=== PATIENT | female | born 1940 | race Caucasian/White ===

== ENCOUNTER 2017-04-02 07:47 | Outpatient (RCR) | payer OTHER ==
[~2017-04-02] VITALS: Ht 157.5 cm; Wt 49.9 kg
[~2017-04-02 07:47] MED LIST: AVAPRO150 MG PO; BUSPAR10 MG ORAL; BUSPIRONE HCL10 M1 PO; CLOZAPINE100 MG PO; CLOZARIL100 MG ORAL; FANAPT2 MG ORAL; GABAPENTIN100 MG PO; IRBESARTAN150 MG PO; LEVOTHYROXINE50 MCG PO; LITHIUM CARBON150 MG ORAL; QUETIAPINE FUMA50 MG PO; RISPERIDONE2 MG PO; SYNTHROID75 MCG ORAL; VITAMIN D-32000 UNI1 ORAL
[2017-04-02] MEDS ORDERED: Succinylcholine 20mg/ml 10ml vial ONE (07:48)
[2017-04-02] MEDS ORDERED: Methohexital Sodium Syr 100mg/10ml IVP ONE (07:48)
[2017-04-02] MEDS ORDERED: Glycopyrrolate 0.2mg/ml 1ml Vial ONE (07:48)
[2017-04-02] MEDS ORDERED: NS 500ML IV ONE (07:48)
[2017-04-02] MEDS ORDERED: Sodium Chloride 500ML 500 ML IV ONE (16:45)
== END 2017-04-26 | disposition home or self-care (01) ==
LOC: MERGE 07:47 → ECT 07:47
DX: F31.64 Bipolar disorder, current episode mixed, severe, with psychotic features (principal)
CPT/HCPCS: 90870; J0330; J7040

== ENCOUNTER 2017-04-28 10:08 | Outpatient (RCR) | payer OTHER ==
[~2017-04-28] VITALS: Ht 157.5 cm; Wt 49.9 kg
[2017-04-28] MEDS ORDERED: Glycopyrrolate 0.2mg/ml 1ml Vial ONE (10:09)
[2017-04-28] MEDS ORDERED: Methohexital Sodium Syr 100mg/10ml IVP ONE (10:09)
[2017-04-28] MEDS ORDERED: Succinylcholine 20mg/ml 10ml vial ONE (10:09)
[2017-04-28] MEDS ORDERED: NS 500ML IV ONE (10:09)
[2017-04-28] MEDS ORDERED: Sodium Chloride 500ML 500 ML IV ONE (10:41)
[2017-05-26] MEDS ORDERED: NS 500ML IV ONE (07:00)
[2017-05-26] MEDS ORDERED: Glycopyrrolate 0.2mg/ml 1ml Vial ONE (07:00)
[2017-05-26] MEDS ORDERED: Methohexital Sodium Syr 100mg/10ml IVP ONE (07:00)
[2017-05-26] MEDS ORDERED: Succinylcholine 20mg/ml 10ml vial ONE (07:00)
[2017-05-26] MEDS ORDERED: Sodium Chloride 500ML 500 ML IV ONE (10:32)
[2017-05-26 10:35] VITALS: BP 159/50
[2017-05-26 10:40] VITALS: BP 170/45
[2017-05-26 10:45] VITALS: BP 154/49
[2017-05-26 10:50] VITALS: BP 130/52
[2017-05-26 11:35] VITALS: BP 123/74
== END 2017-05-27 | disposition home or self-care (01) ==
LOC: MERGE 10:08 → ECT 10:08
DX: F31.64 Bipolar disorder, current episode mixed, severe, with psychotic features (principal)
CPT/HCPCS: 90870; J0330; J7040

== ENCOUNTER 2017-06-25 08:38 | Outpatient (RCR) | payer OTHER ==
[~2017-06-25] VITALS: Ht 157.5 cm; Wt 45.4 kg
[2017-06-25] MEDS ORDERED: Succinylcholine 20mg/ml 10ml vial ONE (08:39)
[2017-06-25] MEDS ORDERED: Glycopyrrolate 0.2mg/ml 1ml Vial ONE (08:39)
[2017-06-25] MEDS ORDERED: NS 500ML ONE (08:39)
[2017-06-25] MEDS ORDERED: Methohexital Sodium Syr 100mg/10ml IVP ONE (08:39)
[2017-06-25 10:17] VITALS: BP 162/75
[2017-06-25] MEDS ORDERED: Sodium Chloride 500ML 500 ML IV ONE (10:36)
[2017-06-25 10:40] VITALS: BP 154/42
[2017-06-25 10:45] VITALS: BP 150/40
[2017-06-25 10:50] VITALS: BP 148/48
[2017-06-25 10:55] VITALS: BP 128/58
== END 2017-06-26 | disposition home or self-care (01) ==
LOC: MERGE 08:38 → ECT 08:38
DX: F31.64 Bipolar disorder, current episode mixed, severe, with psychotic features (principal)
CPT/HCPCS: 90870; J0330; J7040

== ENCOUNTER 2017-07-25 06:02 | Outpatient (RCR) | payer OTHER ==
[~2017-07-25] VITALS: Ht 30.5 cm; Wt 0.5 kg
[2017-07-25] MEDS ORDERED: Succinylcholine 20mg/ml 10ml vial ONE (06:03)
[2017-07-25] MEDS ORDERED: NS 500ML ONE (06:03)
[2017-07-25] MEDS ORDERED: Glycopyrrolate 0.2mg/ml 1ml Vial ONE (06:03)
[2017-07-25] MEDS ORDERED: Methohexital Sodium Syr 100mg/10ml IVP ONE (06:03)
[2017-07-25 09:32] VITALS: BP 168/64
[2017-07-25] MEDS ORDERED: Atropine Sulfate 0.4mg/ml inj IVP PRN (09:48)
[2017-07-25] MEDS ORDERED: Sodium Chloride 500ML 500 ML IV ONE (09:48)
[2017-07-25 09:50] VITALS: BP 156/46
[2017-07-25 09:55] VITALS: BP 162/41
[2017-07-25 10:00] VITALS: BP 143/68
[2017-07-25 10:05] VITALS: BP 138/60
[2017-07-25 10:10] VITALS: BP 139/64
== END 2017-07-27 | disposition home or self-care (01) ==
LOC: MERGE 06:02 → ECT 06:02
DX: F31.64 Bipolar disorder, current episode mixed, severe, with psychotic features (principal)
CPT/HCPCS: 90870; J0330; J7040

== ENCOUNTER 2017-08-20 06:09 | Outpatient (RCR) | payer OTHER ==
[~2017-08-20] VITALS: Ht 157.5 cm; Wt 49.9 kg
[2017-08-20] MEDS ORDERED: Methohexital Sodium Syr 100mg/10ml IVP ONE (06:10)
[2017-08-20] MEDS ORDERED: Succinylcholine 20mg/ml 10ml vial ONE (06:10)
[2017-08-20] MEDS ORDERED: Glycopyrrolate 0.2mg/ml 1ml Vial ONE (06:10)
[2017-08-20] MEDS ORDERED: NS 500ML ONE (06:10)
[2017-08-20 10:10] VITALS: BP 150/57
[2017-08-20 10:26] VITALS: BP 163/60
[2017-08-20] MEDS ORDERED: Sodium Chloride 500ML 500 ML IV ONE (10:26)
[2017-08-20 10:31] VITALS: BP 155/48
[2017-08-20 10:36] VITALS: BP 110/79
[2017-08-20 10:41] VITALS: BP 129/70
== END 2017-08-27 | disposition home or self-care (01) ==
LOC: ECT 06:09
DX: F31.64 Bipolar disorder, current episode mixed, severe, with psychotic features (principal); I10 Essential (primary) hypertension; E03.9 Hypothyroidism, unspecified
CPT/HCPCS: 90870; J0330; J7040

== ENCOUNTER 2017-09-22 06:19 | Outpatient (RCR) | payer OTHER ==
[~2017-09-22] VITALS: Ht 30.5 cm; Wt 0.5 kg
[2017-09-22] MEDS ORDERED: NS 500ML ONE (06:20)
[2017-09-22] MEDS ORDERED: Methohexital Sodium Syr 100mg/10ml IVP ONE (06:20)
[2017-09-22] MEDS ORDERED: Succinylcholine 20mg/ml 10ml vial ONE (06:20)
[2017-09-22] MEDS ORDERED: Glycopyrrolate 0.2mg/ml 1ml Vial ONE (06:20)
[2017-09-22 09:45] VITALS: BP 191/61
[2017-09-22] MEDS ORDERED: Atropine Sulfate 0.4mg/ml inj IVP PRN (10:03)
[2017-09-22] MEDS ORDERED: Sodium Chloride 500ML 500 ML IV ONE (10:03)
[2017-09-22 10:05] VITALS: BP 168/51
[2017-09-22 10:10] VITALS: BP 144/38
[2017-09-22 10:15] VITALS: BP 136/53
[2017-09-22 10:20] VITALS: BP 153/50
== END 2017-09-24 | disposition home or self-care (01) ==
LOC: ECT 06:19
DX: F31.64 Bipolar disorder, current episode mixed, severe, with psychotic features (principal); I10 Essential (primary) hypertension; E03.9 Hypothyroidism, unspecified
CPT/HCPCS: 90870; J0330; J7040

== ENCOUNTER 2017-10-20 05:46 | Outpatient (RCR) | payer OTHER ==
[~2017-10-20] VITALS: Ht 157.5 cm; Wt 49.9 kg
[2017-10-20] MEDS ORDERED: Glycopyrrolate 0.2mg/ml 1ml Vial ONE (05:47)
[2017-10-20] MEDS ORDERED: Succinylcholine 20mg/ml 10ml vial ONE (05:47)
[2017-10-20] MEDS ORDERED: NS 500ML ONE (05:47)
[2017-10-20] MEDS ORDERED: Methohexital Sodium Syr 100mg/10ml IVP ONE (05:47)
[2017-10-20 09:49] VITALS: BP 173/62
[2017-10-20] MEDS ORDERED: Atropine Sulfate 0.4mg/ml inj IVP PRN (10:00)
[2017-10-20] MEDS ORDERED: Sodium Chloride 500ML 500 ML IV ONE (10:00)
[2017-10-20 10:15] VITALS: BP 159/42
[2017-10-20 10:20] VITALS: BP 164/40
[2017-10-20 10:25] VITALS: BP 141/56
[2017-10-20 10:30] VITALS: BP 131/54
== END 2017-10-25 | disposition home or self-care (01) ==
LOC: ECT 05:46
DX: F31.64 Bipolar disorder, current episode mixed, severe, with psychotic features (principal)
CPT/HCPCS: 90870; J0330; J7040

== ENCOUNTER 2017-11-17 08:10 | Outpatient (RCR) | payer OTHER ==
[~2017-11-17] VITALS: Ht 33 cm; Wt 0.5 kg
[2017-11-17] MEDS ORDERED: Methohexital Sodium Syr 100mg/10ml IVP ONE (08:11)
[2017-11-17] MEDS ORDERED: Succinylcholine 20mg/ml 10ml vial ONE (08:11)
[2017-11-17] MEDS ORDERED: NS 500ML ONE (08:11)
[2017-11-17] MEDS ORDERED: Glycopyrrolate 0.2mg/ml 1ml Vial ONE (08:11)
[2017-11-17 08:51] VITALS: BP 167/65
[2017-11-17] MEDS ORDERED: Sodium Chloride 500ML 500 ML IV ONE (09:08)
[2017-11-17 09:10] VITALS: BP 158/56
[2017-11-17 09:15] VITALS: BP 155/39
[2017-11-17 09:20] VITALS: BP 124/75
[2017-11-17 09:25] VITALS: BP 123/54
== END 2017-11-24 | disposition home or self-care (01) ==
LOC: ECT 08:10
DX: F31.64 Bipolar disorder, current episode mixed, severe, with psychotic features (principal)
CPT/HCPCS: 90870; J0330; J7040

== ENCOUNTER 2017-12-24 06:16 | Outpatient (RCR) | payer OTHER ==
[~2017-12-24] VITALS: Ht 157.5 cm; Wt 49.9 kg
[2017-12-24] MEDS ORDERED: Succinylcholine 20mg/ml 10ml vial ONE (06:17)
[2017-12-24] MEDS ORDERED: NS 500ML ONE (06:17)
[2017-12-24] MEDS ORDERED: Methohexital Sodium Syr 100mg/10ml IVP ONE (06:17)
[2017-12-24] MEDS ORDERED: Glycopyrrolate 0.2mg/ml 1ml Vial ONE (06:17)
[2017-12-24 10:37] VITALS: BP 173/62
[2017-12-24 10:58] VITALS: BP 163/51
[2017-12-24] MEDS ORDERED: Sodium Chloride 500ML 500 ML IV ONE (10:58)
[2017-12-24 11:03] VITALS: BP 175/38
[2017-12-24 11:08] VITALS: BP 143/52
[2017-12-24 11:13] VITALS: BP 148/43
== END 2017-12-25 | disposition home or self-care (01) ==
LOC: ECT 06:16
DX: F31.64 Bipolar disorder, current episode mixed, severe, with psychotic features (principal)
CPT/HCPCS: 90870; J0330; J7040

== ENCOUNTER 2018-01-21 06:53 | Outpatient (RCR) | payer OTHER ==
[~2018-01-21] VITALS: Ht 157.5 cm; Wt 49.9 kg
[2018-01-21] MEDS ORDERED: Methohexital Sodium Syr 100mg/10ml IVP ONE (06:54)
[2018-01-21] MEDS ORDERED: Succinylcholine 20mg/ml 10ml vial ONE (06:54)
[2018-01-21] MEDS ORDERED: NS 500ML ONE (06:54)
[2018-01-21] MEDS ORDERED: Glycopyrrolate 0.2mg/ml 1ml Vial ONE (06:54)
[2018-01-21 09:46] VITALS: BP 169/64
[2018-01-21 10:10] VITALS: BP 165/70
[2018-01-21] MEDS ORDERED: Sodium Chloride 500ML 500 ML IV ONE (10:10)
[2018-01-21 10:15] VITALS: BP 163/64
[2018-01-21 10:20] VITALS: BP 171/56
[2018-01-21 10:25] VITALS: BP 165/56
== END 2018-01-24 | disposition home or self-care (01) ==
LOC: ECT 06:53
DX: F31.64 Bipolar disorder, current episode mixed, severe, with psychotic features (principal)
CPT/HCPCS: 90870; J0330; J7040

== ENCOUNTER 2018-02-23 05:46 | Outpatient (RCR) | payer OTHER ==
[~2018-02-23] VITALS: Ht 30.5 cm; Wt 0.5 kg
[2018-02-23] MEDS ORDERED: NS 500ML ONE (05:47)
[2018-02-23] MEDS ORDERED: Succinylcholine 20mg/ml 10ml vial ONE (05:47)
[2018-02-23] MEDS ORDERED: Glycopyrrolate 0.2mg/ml 1ml Vial ONE (05:47)
[2018-02-23] MEDS ORDERED: Methohexital Sodium Syr 100mg/10ml IVP ONE (05:47)
[2018-02-23 08:59] VITALS: BP 182/73
[2018-02-23] MEDS ORDERED: Sodium Chloride 500ML 500 ML IV ONE (09:18)
[2018-02-23 09:20] VITALS: BP 153/63
[2018-02-23 09:25] VITALS: BP 157/55
[2018-02-23 09:30] VITALS: BP 134/78
[2018-02-23 09:35] VITALS: BP 139/57
== END 2018-02-24 | disposition home or self-care (01) ==
LOC: ECT 05:46
DX: F31.64 Bipolar disorder, current episode mixed, severe, with psychotic features (principal)
CPT/HCPCS: 90870; J0330; J7040

== ENCOUNTER 2018-03-23 04:46 | Outpatient (RCR) | payer OTHER ==
[~2018-03-23] VITALS: Ht 157.5 cm; Wt 49.9 kg
[2018-03-23] MEDS ORDERED: Succinylcholine 20mg/ml 10ml vial ONE (04:47)
[2018-03-23] MEDS ORDERED: Methohexital Sodium Syr 100mg/10ml IVP ONE (04:47)
[2018-03-23] MEDS ORDERED: Glycopyrrolate 0.2mg/ml 1ml Vial ONE (04:47)
[2018-03-23] MEDS ORDERED: NS 500ML ONE (04:47)
[2018-03-23 09:32] VITALS: BP 171/67
[2018-03-23] MEDS ORDERED: Sodium Chloride 500ML 500 ML IV ONE (09:46)
[2018-03-23 09:50] VITALS: BP 149/50
[2018-03-23 09:55] VITALS: BP 167/42
[2018-03-23 10:00] VITALS: BP 159/97
[2018-03-23 10:05] VITALS: BP 168/39
== END 2018-03-27 | disposition home or self-care (01) ==
LOC: ECT 04:46
DX: F31.64 Bipolar disorder, current episode mixed, severe, with psychotic features (principal)
CPT/HCPCS: 90870; J0330; J7040

== ENCOUNTER 2018-04-22 06:02 | Outpatient (RCR) | payer OTHER ==
[~2018-04-22] VITALS: Ht 157.5 cm; Wt 49.9 kg
[2018-04-22] MEDS ORDERED: Glycopyrrolate 0.2mg/ml 1ml Vial ONE (06:03)
[2018-04-22] MEDS ORDERED: Methohexital Sodium Syr 100mg/10ml IVP ONE (06:03)
[2018-04-22] MEDS ORDERED: Succinylcholine 20mg/ml 10ml vial ONE (06:03)
[2018-04-22] MEDS ORDERED: NS 500ML ONE (06:03)
[2018-04-22 08:59] VITALS: BP 169/76
[2018-04-22] MEDS ORDERED: Sodium Chloride 500ML 500 ML IV ONE (09:15)
[2018-04-22 09:20] VITALS: BP 165/65
[2018-04-22 09:25] VITALS: BP 143/66
[2018-04-22 09:30] VITALS: BP 163/63
[2018-04-22 09:35] VITALS: BP 172/42
== END 2018-04-26 | disposition home or self-care (01) ==
LOC: ECT 06:02
DX: F31.64 Bipolar disorder, current episode mixed, severe, with psychotic features (principal)
CPT/HCPCS: 90870; J0330; J7040

== ENCOUNTER → 2018-05-27 | Outpatient (RCR) | payer OTHER ==
[~2018-05-27] VITALS: Ht 30.5 cm; Wt 0.5 kg
[~2018-05-27] MED LIST changes: +Atropine Sulfate 0.4mg/ml inj IVP PRN; +Glycopyrrolate 0.2mg/ml 1ml Vial ONE; +Methohexital Sodium Syr 100mg/10ml IVP ONE; +NS 500ML ONE; +Sodium Chloride 500ML 500 ML IV ONE; +Succinylcholine 20mg/ml 10ml vial ONE
[2018-05-27 09:30] VITALS: BP 154/63
[2018-05-27 09:55] VITALS: BP 148/39
[2018-05-27 10:00] VITALS: BP 137/35
[2018-05-27 10:05] VITALS: BP 124/52
[2018-05-27 10:10] VITALS: BP 140/70
== END | disposition home or self-care (01) ==
LOC: ECT 04:47
DX: F31.64 Bipolar disorder, current episode mixed, severe, with psychotic features (principal)
CPT/HCPCS: 90870; J0330; J7040

== ENCOUNTER 2018-06-24 04:42 | Outpatient (RCR) | payer OTHER ==
[~2018-06-24] VITALS: Ht 157.5 cm; Wt 49.9 kg
[~2018-06-24 04:42] MED LIST changes: -Atropine Sulfate 0.4mg/ml inj IVP PRN; -Glycopyrrolate 0.2mg/ml 1ml Vial ONE; -Methohexital Sodium Syr 100mg/10ml IVP ONE; -NS 500ML ONE; -Sodium Chloride 500ML 500 ML IV ONE; -Succinylcholine 20mg/ml 10ml vial ONE
[2018-06-24] MEDS ORDERED: Glycopyrrolate 0.2mg/ml 1ml Vial ONE (04:43)
[2018-06-24] MEDS ORDERED: Methohexital Sodium Syr 100mg/10ml IVP ONE (04:43)
[2018-06-24] MEDS ORDERED: NS 500ML ONE (04:43)
[2018-06-24] MEDS ORDERED: Succinylcholine 20mg/ml 10ml vial ONE (04:43)
[2018-06-24 09:40] VITALS: BP 195/63
[2018-06-24] MEDS ORDERED: Sodium Chloride 500ML 500 ML IV ONE (09:53)
[2018-06-24 09:55] VITALS: BP 167/54
[2018-06-24 10:00] VITALS: BP 170/50
[2018-06-24 10:05] VITALS: BP 158/47
[2018-06-24 10:10] VITALS: BP 151/57
== END 2018-06-26 | disposition home or self-care (01) ==
LOC: ECT 04:42
DX: F31.64 Bipolar disorder, current episode mixed, severe, with psychotic features (principal)
CPT/HCPCS: 90870; J0330; J7040

== ENCOUNTER 2018-07-22 05:03 | Outpatient (RCR) | payer OTHER | END 2018-07-27 | disposition home or self-care (01) | LOC: ECT 05:03 | DX: F31.64 Bipolar disorder, current episode mixed, severe, with psychotic features (principal) ==

== ENCOUNTER 2018-09-14 10:54 | Outpatient (RCR) | payer BC ==
[~2018-09-14] VITALS: Ht 30.5 cm; Wt 0.5 kg
[2018-09-14 09:11] VITALS: BP 154/51
[2018-09-14 09:35] VITALS: BP 150/42
[2018-09-14 09:40] VITALS: BP 138/37
[2018-09-14 09:45] VITALS: BP 122/35
[2018-09-14 09:50] VITALS: BP 125/63
[2018-09-14] MEDS ORDERED: NS 500ML ONE (10:55)
[2018-09-14] MEDS ORDERED: Glycopyrrolate 0.2mg/ml 1ml Vial ONE (10:55)
[2018-09-14] MEDS ORDERED: Methohexital Sodium Syr 100mg/10ml IVP ONE (10:55)
[2018-09-14] MEDS ORDERED: Succinylcholine 20mg/ml 10ml vial ONE (10:55)
== END 2018-09-24 | disposition home or self-care (01) ==
LOC: ECT 10:54
DX: F31.64 Bipolar disorder, current episode mixed, severe, with psychotic features (principal); I10 Essential (primary) hypertension; E03.9 Hypothyroidism, unspecified
CPT/HCPCS: 90870; J0330; J7040

== ENCOUNTER 2018-10-21 06:26 | Outpatient (RCR) | payer BC ==
[~2018-10-21] VITALS: Ht 30.5 cm; Wt 0.5 kg
[2018-10-21] MEDS ORDERED: Glycopyrrolate 0.2mg/ml 1ml Vial ONE (07:00)
[2018-10-21] MEDS ORDERED: Methohexital Sodium Syr 100mg/10ml IVP ONE (07:00)
[2018-10-21] MEDS ORDERED: NS 500ML ONE (07:00)
[2018-10-21] MEDS ORDERED: Succinylcholine 20mg/ml 10ml vial ONE (07:00)
[2018-10-21 09:46] VITALS: BP 140/60
[2018-10-21 10:10] VITALS: BP 166/21
[2018-10-21 10:15] VITALS: BP 142/23
[2018-10-21 10:20] VITALS: BP 132/26
[2018-10-21 10:25] VITALS: BP 132/26
== END 2018-10-25 | disposition home or self-care (01) ==
LOC: ECT 06:26
DX: F31.64 Bipolar disorder, current episode mixed, severe, with psychotic features (principal)
CPT/HCPCS: 90870; J0330; J7040

== ENCOUNTER 2018-11-25 06:19 | Outpatient (RCR) | payer BC ==
[~2018-11-25] VITALS: Ht 30.5 cm; Wt 0.5 kg
[2018-11-25] MEDS ORDERED: Glycopyrrolate 0.2mg/ml 1ml Vial ONE (06:20)
[2018-11-25] MEDS ORDERED: Methohexital Sodium Syr 100mg/10ml IVP ONE (06:20)
[2018-11-25] MEDS ORDERED: NS 500ML ONE (06:20)
[2018-11-25] MEDS ORDERED: Succinylcholine 20mg/ml 10ml vial ONE (06:20)
[2018-11-30] MEDS ORDERED: Glycopyrrolate 0.2mg/ml 1ml Vial ONE (07:00)
[2018-11-30] MEDS ORDERED: Methohexital Sodium Syr 100mg/10ml IVP ONE (07:00)
[2018-11-30] MEDS ORDERED: Succinylcholine 20mg/ml 10ml vial ONE (07:00)
[2018-11-30] MEDS ORDERED: NS 500ML ONE (07:00)
[2018-11-30 09:47] VITALS: BP 149/69
[2018-11-30 10:05] VITALS: BP 155/61
[2018-11-30 10:10] VITALS: BP 183/107
[2018-11-30 10:15] VITALS: BP 172/107
[2018-11-30 10:20] VITALS: BP 179/107
== END 2018-12-25 | disposition home or self-care (01) ==
LOC: ECT 06:19
DX: F31.64 Bipolar disorder, current episode mixed, severe, with psychotic features (principal)
CPT/HCPCS: 90870; J0330; J7040

== ENCOUNTER 2019-01-11 05:49 | Outpatient (RCR) | payer BC ==
[~2019-01-11] VITALS: Ht 30.5 cm; Wt 0.5 kg
[2019-01-18] MEDS ORDERED: NS 500ML ONE (09:00)
[2019-01-18] MEDS ORDERED: Methohexital Sodium Syr 100mg/10ml IVP ONE (09:00)
[2019-01-18] MEDS ORDERED: Succinylcholine 20mg/ml 10ml vial ONE (09:00)
[2019-01-18] MEDS ORDERED: Glycopyrrolate 0.2mg/ml 1ml Vial ONE (09:00)
[2019-01-18 10:16] VITALS: BP 175/57
[2019-01-18 10:30] VITALS: BP 141/61
[2019-01-18 10:35] VITALS: BP 155/34
[2019-01-18 10:40] VITALS: BP 123/30
[2019-01-18 10:45] VITALS: BP 135/34
== END 2019-01-24 | disposition home or self-care (01) ==
LOC: ECT 05:49
DX: F31.64 Bipolar disorder, current episode mixed, severe, with psychotic features (principal)
CPT/HCPCS: 90870; J0330; J7040

== ENCOUNTER 2019-03-01 07:49 | Outpatient (RCR) | payer BC | END 2019-03-27 | disposition home or self-care (01) | LOC: ECT 07:49 | DX: F31.64 Bipolar disorder, current episode mixed, severe, with psychotic features (principal); Z53.9 Procedure and treatment not carried out, unspecified reason ==

== ENCOUNTER 2019-09-08 22:25 | Emergency (ER) | payer BC ==
[~2019-09-08] VITALS: Ht 157.5 cm; Wt 57.2 kg
--- NOTE | 2019-09-08 22:33 | NUR ---
ED Nurse Note: PT BIBA RA 59 FROM [facility] C/O HEAD INJURY S/P FALL WHILE WALKING WITH WALKER AND HITTINGH HEAD. PT PRESENTS WITH RIGHT SIDED HEAD HEMATOMA WITH LAC AT RIGHT HEAD. PT DENIES LOC, DIZZINESS, NV. PT HAS SKIN TEAR TO THE RIGHT FOREARM. VSS, NAD, WILL CONTINUE TO MONITOR PATIENT.
[2019-09-08 23:00] VITALS: BP 128/60
--- NOTE | 2019-09-08 23:20 | Emergency Room Report ---
History of Present Illness General Chief Complaint: Multiple Trauma/Fall Source: Patient Present Illness [facility] There is an 79-year-old female with a history of hypertension. [facility]. She presents with a fall and head injury. She uses a walker and she said she tripped on it on the way to the bathroom. She fell hit her head. She has bleeding and pain to the right side of the head. Not on blood thinner. No nausea no vomiting. No fever chills. Pain is 7 out of 10. No loss of consciousness. Allergies: Coded Allergies: ANTIHISTAMINES - ALKYLAMINE (Unverified Allergy, Unknown, 07/26/17) ANTIHISTAMINES - ETHANOLAMINE (Unverified Allergy, Unknown, 07/26/17) ANTIHISTAMINES - ETHYLENEDIAMINE (Unverified Allergy, Unknown, 07/26/17) ANTIHISTAMINES - PIPERAZINE (Unverified Allergy, Unknown, 07/26/17) ANTIHISTAMINES - PIPERIDINE (Unverified Allergy, Unknown, 07/26/17) MILK (Verified Allergy, Unknown, 07/26/17) PENICILLINS (Unverified Allergy, Unknown, 07/26/17) Uncoded Allergies: anti-histamines (Allergy, Unknown, 07/26/17) Patient History Past Medical History: see triage record, old chart reviewed, HTN Past Surgical History: other Pertinent Family History: none Social History: Denies: smoking Last Menstrual Period: NA Now: No : 1 Para: 1 Immunizations: other Reviewed Nursing Documentation: PMH: Agreed; PSxH: Agreed Nursing Documentation-PMH Hx Cardiac Problems: No - MOBITZ TYPE II Hx Hypertension: Yes Hx Cancer: No Hx Gastrointestinal Problems: Yes Hx Neurological Problems: Yes - HYPOTHYROID Review of Systems Eye: Denies: eye pain, blurred vision ENT: Denies: ear pain, nose congestion, throat swelling Respiratory: Denies: cough, shortness of breath Cardiovascular: Denies: chest pain, palpitations Gastrointestinal: Denies: abdominal pain, diarrhea, nausea, vomiting Musculoskeletal: Denies: back pain, joint pain Skin: Denies: rash Neurological: Denies: headache, numbness Endocrine: Denies: increased thirst, increased urine Hematologic/Lymphatic: Denies: easy bruising All Other Systems: negative except mentioned in HPI Physical Exam Vital Signs Date Time Temp Pulse Resp B/P (MAP) Pulse Ox O2 Delivery O2 Flow Rate FiO2 09/08/19 22:31 97.9 108 16 144/60 (88) 97 Room Air 09/08/19 23:00 98 Is normal Sp02 EP Interpretation: reviewed, normal General Appearance: well appearing, no apparent distress, alert Head: normocephalic, other - 1 cm laceration to the right parietal area. Not gaping. She also has a hematoma underlying it. Eyes: bilateral eye PERRL, bilateral eye EOMI ENT: hearing grossly normal, normal pharynx Neck: full range of motion, supple, no meningismus Respiratory: chest non-tender, lungs clear, normal breath sounds Cardiovascular #1: regular rate, rhythm, no murmur Gastrointestinal: normal bowel sounds, non tender, no mass, no organomegaly, no bruit, non-distended Musculoskeletal: back normal, normal range of motion, gait/station normal Psychiatric: mood/affect normal Procedures Laceration/Wound Repair Laceration/Wound Repair : Consent: Verbal Wound Location: head Wound's Depth, Shape: superficial Wound Length (cm): 1 Wound Explored: clean Irrigated w/ Saline (ccs): 500 Wound Repaired With: Dermabond Patient Tolerated: Well Complications: None Medical Decision Making Diagnostic Impression: Primary Impression: Head injury, acute Qualified Codes: S09.90XA - Unspecified injury of head, initial encounter Additional Impression: Scalp laceration Qualified Codes: S01.01XA - Laceration without foreign body of scalp, initial encounter ER Course Patient with a mechanical fall with a scalp injury. No skull fracture or bleed. Will discharge back to [facility] CT/MRI/US Diagnostic Results CT/MRI/US Diagnostic Results : Imaging Test Ordered: CT head Impression Per radiologist negative Last Vital Signs Date Time Temp Pulse Resp B/P (MAP) Pulse Ox O2 Delivery O2 Flow Rate FiO2 09/08/19 23:00 92 16 Room Air 98 09/08/19 23:00 98.2 128/60 97 Status: improved Disposition: HOME, SELF-CARE Condition: Stable Additional Instructions: Follow-up with your doctor in 7 days. Return if symptoms worsen. Miguel Ángel Hurt MD Sep 08, 2019 23:20
--- NOTE | 2019-09-08 23:34 | NUR ---
ED Nurse Note: PT WENT FOR CT VIA WHEELCHAIR ACCOMPANIED BY [employer] CAR OPERATOR IN STABLE CONDITION
--- NOTE | 2019-09-08 23:49 | NUR ---
ED Nurse Note: PT BACK FROM CT VIA WHEELCHAIR ACCOMPANIED BY DIRECTOR OF UNDERGRADUATE ADMISSIONS IN STABLE CONDITION
--- NOTE | 2019-09-09 00:31 | NUR ---
ED Nurse Note: called [facility]. Spoke with Shelbi
--- NOTE | 2019-09-09 00:37 | Diagnostic Imaging Report ---
Indications: Fell and hit back of head Technique: Spiral acquisitions obtained through the brain. Angled axial and coronal 5 x 5 mm slices were reconstructed. Total dose length product 1904 mGycm. CTDI vol(s) 77 mGy. Dose reduction achieved using automated exposure control Comparison: None. Findings: No acute intracranial hemorrhage or edema, mass effect, nor midline shift. There is age-related enlargement of the ventricles and extra axial CSF spaces, very mild periventricular deep white matter low-attenuation consistent with chronic microvascular ischemic change. Visualized orbits and sinuses are unremarkable. The mastoids are clear. The calvarium is intact. Impression: Chronic and age-related changes Negative for acute intracranial bleed or mass effect This agrees with the preliminary interpretation provided overnight by [facility] teleradiology service. The CT scanner at [facility] is accredited by the [employer] and the scans are performed using protocols designed to limit radiation exposure to as low as reasonably achievable to attain images of sufficient resolution adequate for diagnostic evaluation.
[2019-09-09 01:40] VITALS: BP 128/60
--- NOTE | 2019-09-09 01:40 | NUR ---
ER DISCHARGE NOTE: Patient is cleared to be discharged per ERMD, pt is aox4, on room air, with stable vital signs. pt was given dc and prescription instructions, pt was able to verbalize understanding, pt id band removed without complications. pt is able to ambulate with steady gait. pt took all belongings.
== END 2019-09-09 01:40 | disposition home or self-care (01) ==
LOC: EDBD 22:25 → EMR 23:00
DX: S01.01XA Laceration without foreign body of scalp, initial encounter (principal); I10 Essential (primary) hypertension; E03.9 Hypothyroidism, unspecified; I44.1 Atrioventricular block, second degree; W01.10XA Fall on same level from slipping, tripping and stumbling with subsequent striking against unspecified object, initial encounter; Y93.01 Activity, walking, marching and hiking; Y92.019 Unspecified place in single-family (private) house as the place of occurrence of the external cause; Z88.8 Allergy status to other drugs, medicaments and biological substances; Z91.011 Allergy to milk products
CPT/HCPCS: 70450; 99284